=== PATIENT | male | born 1950 | race Two or more races ===

== ENCOUNTER 2016-06-11 07:27 | Emergency (ER) | payer MEDICARE, MEDICAID ==
[2015-07-06 15:09] VITALS: BMI 39.5
[~2016-06-11 07:27] MED LIST: ALIGN4 MG PO; AMBIEN10 MG PO; ASPIRIN325 MG PO; GLUCOPHAGE1000 MG PO; GLUCOTROL XL 1010 MG PO; HYDROCODONE-APA1 TAB PO; JANUVIA100 MG PO; LANTUS SOL100 UNIT/1 SQ; LISINOPRIL5 MG PO; LYRICA150 MG PO; MIRALAX17 GM PO; NEURONTIN600 MG PO; NICODERM C1 PATCH .2 TRANSDERM; NIFEDIPINE ER30 MG PO; NOVOLOG100 U/M1 SC; PLAVIX75 MG PO; PRILOSEC20 MG PO; STOOL SOFTENER240 MG PO; ZOLOFT100 MG PO
[2016-06-11 08:19] LABS: BASOPHILS 0.1 % (0.0-2.0); EOSINOPHILS 1.2 % (0-7); HEMATOCRIT 37.4 % (42.0-54.0); HEMOGLOBIN 12.4 g/dL (13.5-17.5); IMMATURE GRANULOCYTES 0.3 % (0-5); LYMPHOCYTES 13.8 % (15-50); MCH 29.6 pg (26.0-34.0); MCHC 33.2 g/dL (31.0-37.0); MCV 89.3 fL (80.0-100.0); MEAN PLATELET VOLUME 9.8 fL (7.4-10.4); MONOCYTES 6.8 % (2-11); NEUTROPHILS 77.8 % (40-80); RBC 4.19 10x6/uL (4.20-6.10); RDW 12.9 % (11.5-14.5); WBC 11.5 10x3/uL (4.8-10.8)
[2016-06-11 08:25] LABS: PLATELET COUNT 292 10x3/uL (130-400)
[2016-06-11 08:56] LABS: ALBUMIN 2.9 g/dL (3.4-5.0); ANION GAP 10.3 mmol/L (8-16); BILIRUBIN - TOTAL 0.3 mg/dL (0.2-1.3); CALCIUM 8.8 mg/dL (8.5-10.1); CARBON DIOXIDE 28.8 mmol/L (21.0-32.0); CREATININE - SERUM 1.1 mg/dL (0.6-1.3); POTASSIUM - SERUM 4.1 mmol/L (3.5-5.1); PROTEIN - SERUM 7.2 g/dL (6.4-8.2)
== END 2016-06-11 11:50 | disposition home or self-care (01) ==
LOC: D.ER 07:27
PROVIDERS: Emergency Medicine
DX: R06.00 Dyspnea, unspecified (principal); D64.9 Anemia, unspecified; E11.9 Type 2 diabetes mellitus without complications; Z79.4 Long term (current) use of insulin; E83.42 Hypomagnesemia; J44.1 Chronic obstructive pulmonary disease with (acute) exacerbation; I10 Essential (primary) hypertension; Z86.73 Personal history of transient ischemic attack (TIA), and cerebral infarction without residual deficits; I45.10 Unspecified right bundle-branch block